=== PATIENT | male | born 1950 | race Caucasian/White ===

== ENCOUNTER 2019-10-21 12:03 | Inpatient (IN) ==
[2019-10-21] MEDS ORDERED: ASPIRIN PO ONE (12:14)
[2019-10-21] MEDS ORDERED: CARDIZEM 100 MG/NS 100 MG/100 ML IVPB IV SCH (12:15)
[2019-10-21] MEDS ORDERED: CARDIZEM IV ONE ×2 (12:15→13:37)
--- NOTE | 2019-10-21 12:32 | EKG Report ---
Test Performed on : 10/21/2019 12:14:55 PM Test Reason : AFIB Blood Pressure : / mmHG Vent. Rate : 140 BPM Atrial Rate : 280 BPM P-R Int : 000 ms QRS Dur : 084 ms QT Int : 308 ms P-R-T Axes : 269 069 -21 degrees QTc Int : 470 ms Atrial flutter. with 2:[address]. [address] abnormality, possible inferior subendocardial injury Abnormal ECG When compared with ECG of 12-OCT-2019 03:27, (Unconfirmed) Atrial flutter. has replaced Sinus rhythm. Vent. rate has increased BY [address] now depressed in Inferior leads T wave inversion now evident in Inferior leads Unconfirmed Result
[2019-10-21 12:54] LABS: INR 1.29; PROTIME 16.3 Seconds (11.0-16.0); PTT 31.7 Seconds (22.3-41.8)
--- NOTE | 2019-10-21 12:58 | Diag Imaging Result Doc PS360 ---
EXAM: CHEST-1 VIEW 10/21/2019 HISTORY: SOB TECHNIQUE: AP portable upright at 1244 COMMENT: There is ill-defined opacity in both lung bases which was not the case on 09/08/2017. The heart size and primary vascularity are within normal limits. IMPRESSION: Mild bronchopneumonia. Electronically signed by López Mixon 10/21/2019 12:56 PM
[2019-10-21 13:00] LABS: BASO# 0.08 X1000 (0.0-0.2); BASO% 0.5 % (0.0-0.8); EOS# 0.09 X1000 (0.0-0.7); EOS% 0.6 % (0.0-10.0); HEMATOCRIT 44.8 % (42.0-52.0); HEMOGLOBIN 14.4 g/dL (14.0-18.0); IMM GRAN# 0.99 X1000 (0.0-0.04); IMM GRAN% 6.4 % (0.0-0.5); LYMPH% 7.8 % (20.5-51.1); MCH 27.1 PG (27-31); MCHC 32.1 g/dL (33-37); MCV 84.2 FL (81-99); MONO# 0.61 X1000 (0.11-0.59); NEUT# 12.47 X1000 (1.4-6.5); NEUT% 80.7 % (42.2-75.2); PLT 96 X1000 (130-400); RBC 5.32 XMIL (4.7-6.1); WBC 15.44 X1000 (4.8-10.8)
[2019-10-21 13:09] LABS: ALB/GLOB RATIO 1.1; ALBUMIN 3.4 g/dL (3.5-5.0); CALCIUM 9.1 mg/dL (8.8-10.2); CREATININE 1.2 mg/dL (0.7-1.2); TOTAL BILIRUBIN 1.12 mg/dL (0.20-1.00); TOTAL PROTEIN 6.6 g/dL (6.3-8.3)
[2019-10-21 13:16] LABS: POTASSIUM 4.4 mmol/L (3.5-5.1)
[2019-10-21] MEDS ORDERED: LEVAQUIN 750 MG/D5W 750 MG/150 ML IVPB IV ONE (13:21)
[2019-10-21] MEDS ORDERED: ZOFRAN IV ONE (13:32)
[2019-10-21] MEDS ORDERED: ROCEPHIN 1 GM in NS 50 ML IV ONE (13:36)
[2019-10-21] MEDS ORDERED: ZITHROMAX 500 MG/NS 500 MG/250 ML IVPB IV ONE (13:37)
--- NOTE | 2019-10-21 14:31 | PROVIDER DOCUMENTATION ---
This chart was entered by Kristen Fang Scribe, acting as scribe for Librado Loo MD. HPI-Respiratory General - General Chief Complaint: Palpitations Stated Complaint: A FIB Time Seen by Provider: 10/21/19 12:39 Source: patient Allergies/Adverse Reactions: Patient Allergies Allergy/AdvReac Type Severity Reaction Status Date / Time No Known Allergies Allergy Verified 10/21/19 13:36 Home Medications: Home Medication List Medication Instructions Recorded Confirmed Last Taken Type ATORVAstatin [Lipitor] 40 mg PO DAILY 10/12/19 10/21/19 10/20/19 History Cholecalciferol (Vitamin D3) 5,000 unit PO DAILY 10/12/19 10/21/19 10/21/19 His tory [Vitamin D3] Clonazepam 0.5 mg PO DAILY 10/12/19 10/21/19 10/20/19 History Diltiazem [Cardizem] 240 mg PO DAILY 10/12/19 10/21/19 10/20/19 History Famotidine [Pepcid] 40 mg PO DAILY 10/12/19 10/21/19 10/20/19 History Levofloxacin [Levaquin] 500 mg PO DAILY 10/12/19 10/21/19 10/21/19 History Levothyroxine [Synthroid] 125 mcg PO DAILY 10/12/19 10/21/19 10/19/19 08:00 History Rivaroxaban [Xarelto] 20 mg PO DAILY 10/12/19 10/21/19 10/19/19 08:00 History Tamsulosin [Flomax] 0.4 mg PO BID 10/12/19 10/21/19 10/21/19 History Ubidecarenone [Coenzyme Q10] 100 mg PO DAILY 10/12/19 10/21/19 10/20/19 History - History of Present Illness-Resp Nature of Presenting Problem: 69yom presents to ED cc SOB this morning. Pt reports he has hx of Afib and recently had a med change, he was taken off Coreg and also hasn't had his Xarelto since Saturday night due to a liver biopsy scheduled on Saturday. Pt is followed by Dr. Quinones for Afib and Dr. Esparza due to being recently dx with liver and lung cancer. Quality of Pain: reports: tightness Severity in ED: reports: mild Onset/Duration: reports: this morning Timing: reports: still present Cough Quality/Degree: reports: no cough Current Respiratory Medication Therapy: Initiated see nurses note Modifying Factors: improves with: nothing Associated Symptoms: reports: shortness of breath, short of breath. denies: chest pain/soreness Similar Symptoms Previously?: Yes Recently seen or treated by another doctor?: Yes Review of Systems - Adult - REVIEW OF SYSTEMS - ADULT Constitutional: reports: see HPI. denies: chills, fever, fatique Eyes: reports: no symptoms reported Ears, Nose, Mouth & Throat: reports: no symptoms reported Cardiovascular: reports: see HPI, palpitations. denies: chest pain Respiratory: reports: see HPI, shortness of breath. denies: cough, wheezing Gastrointestinal: reports: no symptoms reported Genitourinary: reports: no symptoms reported Musculoskeletal: reports: no symptoms reported Integumentary: reports: no symptoms reported Neurological: reports: no symptoms reported Psychiatric: reports: no symptoms reported Endocrine: reports: no symptoms reported Hematologic/Lymphatic: reports: no symptoms reported Allergic/Immunologic: reports: no symptoms reported All Other Systems: Reviewed and Negative Past History - Adult - PAST MEDICAL HISTORY-ADULT Review of Records: reports: Old Records Reviewed, Nursing Assessment Review, Medications Reviewed, Social history reviewed & non-contributory. Major Childhood Illnesses: reports: denies history Cardiovascular: reports: denies history Respiratory: reports: denies history Gastrointestinal: reports: denies history Obstetrical/Gynecological: reports: denies history Genitourinary: reports: denies history Musculoskeletal: reports: denies history Neurological: reports: denies history Endocrine/Immune: reports: denies history Other Conditions: reports: denies history - IMMUNIZATION STATUS Childhood Immunizations: See Nurse Assessment Flu Vaccine: See Nurse Assessment - FAMILY HISTORY Family History: reviewed, not pertinent Physical Exam-General - PHYSICAL EXAM-ADULT Initial Vital Signs Reviewed: Yes - CONSTITUTIONAL General Appearance: appears well, alert, no apparent distress. negative: anxious, combative - EYES Eyes: PERRL/EOMI, pink conjunctivae. negative: photophobia - HEAD, EARS, NOSE, MOUTH & THROAT HENMT: normocephalic/atraumatic, moist mucous membranes. negative: angioedema - NECK Neck: supple, normal inspection - RESPIRATORY Respiratory: chest non-tender, lungs clear, normal breath sounds. negative: rhonchi, wheezing - CARDIOVASCULAR Cardiovascular: normal peripheral pulses, no edema, no murmur, tachycardia. negative: bradycardia - GASTROINTESTINAL (ABDOMEN) Abdominal Exam: normal bowel sounds, non tender, soft. negative: guarding, rebound - MUSCULOSKELETAL Extremity: normal inspection, no pedal edema, no calf tenderness, normal capillary refill. negative: deformity - SKIN Integumentary: normal color. negative: diaphoresis, jaundice, rash - NEUROLOGIC Neurologic: wax coating machine tender II-XII nml as tested, grossly normal, no motor/sensory deficits - PSYCHIATRIC Psych/Mental Status: normal mood/affect, oriented x 3. negative: anxious, disheveled Progress - PLAN OF CARE/RESULTS Progress/Plan/Lab Results: Vital Signs - 8 hr 10/21/19 12:23 10/21/19 13:12 Temperature 97.9 F Pulse Rate 141 H 141 H Respiratory Rate 20 18 Blood Pressure 96/56 95/66 O2 Sat by Pulse Oximetry 91 L 92 L Laboratory Results - last 24 hr 10/21/19 10/21/19 10/21/19 12:21 12:21 12:21 WBC RBC Hgb Hct MCV MCH MCHC RDW Std Deviation Plt Count MPV Immature Gran % (Auto) Neut % (Auto) Lymph % (Auto) [place] % (Auto) Eos % (Auto) Baso % (Auto) Immature Gran # (Auto) Neut # (Auto) Lymph # (Auto) [place] # (Auto) Eos # (Auto) Baso # (Auto) PT INR PTT (Actin FS) Sodium 133 L Potassium 4.4 Chloride 96 L Carbon Dioxide 21 L Anion Gap 16 BUN 19 Creatinine 1.2 Estimated GFR/1.73 m2 60 BUN/Creatinine Ratio 16 Glucose 205 H Calculated Osmolality 275 Calcium 9.1 Total Bilirubin 1.12 H AST 120 H ALT 67 H Alkaline Phosphatase 461 H Creatine Kinase 83 Troponin T High Sens 25 H Gwd-J-Kgzyvtmqons Pept 721 H Total Protein 6.6 Albumin 3.4 L Globulin 3.2 Albumin/Globulin Ratio 1.1 10/21/19 10/21/19 12:21 12:21 WBC 15.44 H RBC 5.32 Hgb 14.4 Hct 44.8 MCV 84.2 MCH 27.1 MCHC 32.1 L RDW Std Deviation 14.0 Plt Count 96 L MPV 11.0 H Immature Gran % (Auto) 6.4 H Neut % (Auto) 80.7 H Lymph % (Auto) 7.8 L [place] % (Auto) 4.0 Eos % (Auto) 0.6 Baso % (Auto) 0.5 Immature Gran # (Auto) 0.99 H Neut # (Auto) 12.47 H Lymph # (Auto) 1.20 [place] # (Auto) 0.61 H Eos # (Auto) 0.09 Baso # (Auto) 0.08 PT 16.3 H INR 1.29 PTT (Actin FS) 31.7 Sodium Potassium Chloride Carbon Dioxide Anion Gap BUN Creatinine Estimated GFR/1.73 m2 BUN/Creatinine Ratio Glucose Calculated Osmolality Calcium Total Bilirubin AST ALT Alkaline Phosphatase Creatine Kinase Troponin T High Sens [id number] Pept Total Protein Albumin Globulin Albumin/Globulin Ratio Orders Category Date Time Status Cardiac Monitoring DIRECTED Care 10/21/19 12:15 Active NEWS Score >or=5:Order NEWS Bundle S.O. NOW Care 10/21/19 12:26 Active Oxygen Therapy- ED Nursing DIRECTED Care 10/21/19 12:15 Active Saline Loc NOW Care 10/21/19 12:15 Active CHEST-1 VIEW [RAD] Stat Exams 10/21/19 12:15 Completed BC [BLOOD CULTURE] [BLDCUL] Stat Lab 10/21/19 13:21 Uncollected CBC WITH ELECTRONIC DIFF [HEME] Stat Lab 10/21/19 12:21 Completed CK PROFILE [SP CHEM] Stat Lab 10/21/19 12:21 Completed COMPREHENSIVE METABOLIC PANEL [CHEM] Stat Lab 10/21/19 12:21 Completed LACTATE, PLASMA [CHEM] Stat Lab 10/21/19 12:21 Received PRO B-NATRIURETIC PEPTIDE Stat Lab 10/21/19 12:21 Completed PROTIME WITH INR [COAG] Stat Lab 10/21/19 12:21 Completed PTT [COAG] Stat Lab 10/21/19 12:21 Completed TROPONIN T HIGH SENSITIVITY Stat Lab 10/21/19 12:21 Completed Aspirin Med 10/21/19 12:14 Discontinued 325 mg PO NOW ONE Azithromycin 500 mg/Ns [Zithromax 500 mg/Ns] Med 10/21/19 13:37 Active 500 mg in 250 ml IV NOW CefTRIAXONE [Rocephin] 1 gm Med 10/21/19 13:36 Discontinued 0.9% Sodium Chloride Inj [Ns] 50 ml IV NOW Diltiazem 100 mg/Ns [Cardizem 100 mg/Ns] Med 10/21/19 12:15 Active 100 mg in 100 ml IV As Directed mls/hr Diltiazem [Cardizem] Med 10/21/19 12:15 Discontinued 20 mg IV NOW ONE Diltiazem [Cardizem] Med 10/21/19 13:37 Discontinued 20 mg IV NOW ONE Levofloxacin 750 mg/D5w [Levaquin 750 mg/D5w] Med 10/21/19 13:21 Discontinued 750 mg in 150 ml IV NOW Ondansetron [Zofran] Med 10/21/19 13:32 Discontinued 4 mg IV NOW ONE CP/SOB/Palp >45 yrs of Age Stat Oth 10/21/19 12:14 Ordered EKG [EKG] Stat Ther 10/21/19 12:15 Draft Result Diagrams: 10/21/19 12:21 10/21/19 12:21 - EKG 1 Time of EKG reading by physician:: 12:14 EKG Read and Signed by:: Librado Loo EKG Interpretation (*Must complete 3 of following elements*): Abnormal (Marked St abnormality; possible inferior subendocardial injury) Rate: 140 Rhythm: Atrial Flutter w/2:1 AV conduction [place]: normal QRS: normal - XRAY 1 XRAY: Bilateral XRAY Study: Chest Impression: See EMR Report (IMPRESSION: Mild bronchopneumonia. Electronically signed by López Mixon 10/21/2019 12:56 PM) - CONSULTS/PCP/HOSPITALIST Notification #1 *Consult/PCP/Hospitalist*: Aurea/LEELEE Time Discussed: 14:07 Consult Disposition: Admit Departure - Departure Date of Disposition Decision: 10/21/19 Time of Disposition Decision: 14:07 DIAGNOSIS: Pneumonia Qualifiers: Pneumonia type: due to unspecified organism Laterality: unspecified laterality Lung location: unspecified part of lung Qualified Code(s): J18.9 - Pneumonia, unspecified organism Atrial flutter Qualifiers: Atrial flutter type: unspecified Qualified Code(s): I48.92 - Unspecified atrial flutter Disposition: ADMITTED INPATIENT 09 Certified Medical Emergency: Emergent Condition: Stable Referrals and Follow-Ups: Bay Hopper MD [Primary Care Provider] - - Critical Care Note This patient required my direct & personal management of CC.: Yes Total Time (mins): 120 Critical Care Statement: This patient required my direct personal management to treat or rule out processes, the absence of which, could potentiallly result in sudden, clinically significant life or limb threatening deterioration. Attestation - Physician/ [place] Attestation Patient care was provided by Advanced Practice Provider:: No The physician spent face to face time with patient:: Yes Advanced Practice Provider documentation review:: Supervising physician onsite and consulted in the evaluation and care of this patient. The physician did have a face to face encounter with the patient. This chart was documented by the indicated scribe, (Kristen Fang Scribe) and accurately reflects the services I performed and decisions made by me, Librado Loo MD, as attested by the provider's signature.
[2019-10-21] MEDS ORDERED: NS NEB INH SCH (16:30)
[2019-10-21] MEDS ORDERED: XARELTO PO SCH (17:00)
[2019-10-21] MEDS ORDERED: CORDARONE 360 MG/D5W 360 MG/200 ML IV.SOLN IV ONE (17:33)
[2019-10-21] MEDS ORDERED: HEPARIN 25,000 UNIT in NS 250 ML IV SCH (17:45)
[2019-10-21] MEDS ORDERED: HEPARIN IV ONE (17:46)
[2019-10-21 17:55] LABS: ALLEN TEST NO; BE -4.2 mmoll (-3.0-3.0); BLOOD TYPE ARTERIAL; HCO3-(ACT) 21.5 mmoll (20.0-26.0); METHB 1.5 % (0.0-1.5); O2(CT) 18.5 mL/dL (15.0-23.0); O2HB 91.4 % (95.0-99.0); PCO2(98.6) 26 mmHg (35-45); PO2(98.6) 63 mmHg (60-100); SAMPLE BLOOD; SAO2 94.4 % (95.0-100.0); THB 14.4 g/dL (11.5-17.4); pH(98.6) 7.45 (7.35-7.45)
[2019-10-21 17:56] LABS: MODALITY VENTIMASK
[2019-10-21] MEDS: XOPENEX NEB INH SCH ×2 (17:56→22:02)
--- NOTE | 2019-10-21 19:13 | HISTORY AND PHYSICAL ---
PRIMARY CARE PROVIDER: Dr. Bay Hopper. ONCOLOGIST: Dr. Esparza. BICYCLE TECHNICIAN: Dr. Quinones. CHIEF COMPLAINT: Weakness, heart palpitations, shortness of breath. HISTORY OF PRESENT ILLNESS: Mr. Prado is a 69-year-old male with a past medical history of recently diagnosed with a lung mass and lesion on his liver. He has saw Dr. Esparza in the office twice now. He has not started chemotherapy. He is supposed to go for a lung biopsy I believe Saturday. He has been off his Xarelto since then. He had a recent change in his Coreg from 12.5 down to 6 b.i.d., that was stopped by Dr. Quinones, and was initiated on Cardizem 240 daily for lower blood pressures as well as an increase in his heart rate. This was done last Saturday. Again, no Xarelto since Saturday in anticipation for a liver and lung biopsy. Other past medical history, BPH, hypertension, vitamin D deficiency, hypothyroidism, anxiety. He was diagnosed with atrial fibrillation in April of 2019. He reports recent constipation, no appetite, change in the way that foods smells. He has been positive for night sweats for the last couple of months. Weight loss from August, from 235 down to 220. Positive for shortness of breath, palpitations with no chest pain, dizziness. Workup in the ED showed he was in atrial flutter with a 2:1 AV conduction at 140 beats per minute. He was initiated on a Cardizem drip. There was some question if he has a bronchopneumonia. Unsure if it is pneumonia and/or the mass on the right side. However, it does state it is on bilateral sides. He reports no cough or productive sputum. No fever. No chills. He will be admitted to PCU and continue on Cardizem drip with a Cardiology consult. PAST MEDICAL HISTORY: Recently diagnosis this past Saturday with I believe a lung and liver mass, atrial fibrillation in April 2019, recent changes in his antiarrhythmics, hyperlipidemia, anxiety, GERD, BPH, hypertension. PAST SURGICAL HISTORY: Cholecystectomy. SOCIAL HISTORY: He recently second time around in 2018. He was a . No tobacco, alcohol, or illicit drug use, or substance abuse. FAMILY HISTORY: Positive for coronary artery disease in brother who at the age of 42 from an [place]. Father at the age of 53. ALLERGIES: No known drug allergies. MEDICATIONS: Home medications are being compiled. REVIEW OF SYSTEMS: Fourteen point review of systems completely negative except for those mentioned in HPI. PHYSICAL EXAMINATION: VITAL SIGNS: Temperature is 97.6 degrees, heart rate 136, respirations 24, blood pressure 113/77, O2 is 95% on Venturi mask. GENERAL: Mr. Prado is a pleasant, 69-year-old male who is short of breath but in no acute distress. HEENT: Atraumatic, normocephalic. PERRL. NECK: Supple. Trachea midline. CV: S1, S2 are appreciated. No murmurs, gallops, rubs noted. RESPIRATORY: Lung sounds clear bilaterally. GI: Soft, nontender, nondistended. Positive bowel sounds 4 quadrants. EXTREMITIES: Lower extremities negative for edema. Bilateral pedal pulses are palpable. DIAGNOSTIC DATA: EKG shows atrial flutter at 140 beats per minute with a 2:1 AV conduction. Chest x-ray shows bronchopneumonia. LABORATORY DATA: White count 15, hemoglobin and hematocrit 14 and 44, platelet count is 96,000. Sodium 133, potassium 4.4, BUN 19, creatinine 1.2, blood glucose is 205. T bilirubin 1.2, AST 120, ALT 67, alkaline phosphatase 461. CK of 83. Troponin of 25. ProBNP is 721. Lactate 3.5. ASSESSMENT AND PLAN: 1. Atrial flutter was 2:1 AV conduction. He is not converting on Cardizem. He has been switched to IV amiodarone with a bolus, as well as a heparin drip. Consult Cardiology. Check an echocardiogram in the a.m. He has had a recent medication change, taken off his Coreg and placed on a Cardizem. He has been off his Xarelto since Saturday secondary to needing a, I believe, a liver and lung biopsy. 2. Bronchopneumonia. We will continue with broad-spectrum antibiotics. He did have a positive lactate. I do not see where he has gotten any fluid boluses. We have started normal saline. 3. New diagnosis of right lung and liver masses. Will be followed by Dr. Esparza. Was awaiting a biopsy on his liver. He has been off his Xarelto. Again, he has been placed on heparin drip. 4. Transaminitis, possibly secondary to liver mass. We will do a right upper quadrant ultrasound. Send off a hepatitis profile. 5. Hypertension. The patient was borderline hypotensive on arrival. 6. Hypothyroidism. Continue Synthroid. 7. Benign prostatic hypertrophy. 8. Anxiety. 9. Mild hyponatremia. Continue with IV hydration. 10. Hyperglycemia. Denies any history of diabetes. We will check a hemoglobin A1c. 11. Hypoxemic. Patient is being placed on a Venturi mask. We will consult Dr. Peacock with Pulmonology. Check an ABG stat. 12. Further recommendation to follow physician evaluation, laboratory and diagnostic data. Dictated by LUCIO Gayle for Tiffanie Kumar MD cc: MD Francisco Avilez MD Ashish K. Basu, MD Wayne E. Thomas, MD Katherine Takundwa, MD I performed a face to face encounter on the patient. I reviewed all labs and imaging on the patient. I agree with the H&P as dictated. LUANAD
[2019-10-21] MEDS: NS 1,000 ML IV SCH (19:46)
[2019-10-21] MEDS: BETAPACE PO SCH ×2 (19:46→22:11)
[2019-10-21] MEDS: ZYVOX 600 MG/D5W 600 MG/300 ML IVPB IV SCH ×2 (19:46→22:12)
[2019-10-21] MEDS: LOVENOX SUBQ SCH (19:46)
[2019-10-21] MEDS ORDERED: BETAPACE PO SCH (20:00)
--- NOTE | 2019-10-21 20:50 | CARDIOLOGY CONSULTATION ---
DATE: 10/21/2019 CHIEF COMPLAINT: Irregular heartbeat, dizziness. HISTORY: A 69-year-old male who presents to the ER today at about 12:15 p.m. with a sudden onset of dizziness this morning when he got up. He checked his blood pressure, noted that he could not measure it. His machine was giving him an error reading. He decided to come to the ER and they found him in atrial flutter with rapid response. They did a chest x-ray that has been reported by the radiologist as showing possible mild bronchopneumonia, ill-defined opacity in both lung bases. The patient denies having any cough, any wheezing, any fever. PAST MEDICAL HISTORY: Positive for "mitral valve prolapse" for the past 25 years or so. He was seeing doctors in [place], Dr. Reyes and subsequently Dr. Keturah Prado. They were treating him with Klonopin and in 2016 he developed an episode of chest discomfort. They did a stress test and he took the results of the stress test to [place] and they did a CT of the heart that showed moderate coronary atherosclerosis with a 50% stenosis of the right coronary artery. Then in April of last year. The patient developed episode of paroxysmal atrial fibrillation and at that time, he went back to [place] and he was referred to Dr. [place], who put him on Xarelto and has been treating him since. The patient had an episode of atrial fibrillation on 10/12/2019 for which he went to the ER. They recommended a follow up. Apparently they had arranged for him to see Dr. Quinones at the office and he saw him recently. There were plans to do an echocardiogram on November 01. However, he just presented today to the ER with the aforementioned symptoms of dizziness and the finding of a rapid heartbeat. In addition, the patient was found to have possible metastatic lesion in the liver and also an abnormal CT of the chest. I believe this was done by Dr. Esparza and the patient had been scheduled for a CT-guided biopsy on October 19. Unfortunately, he had not discontinued the Xarelto and that biopsy has been postponed until this coming Saturday, 10/22. The patient has a history of questionable stroke in the past. He has had previous cholecystectomy. SOCIAL HISTORY: He is to his 2nd . He has 2 grown up children. 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 HOME MEDICATIONS: At the time of this admission included the following: He is taking atorvastatin 40 mg daily, vitamin D3 5000 units daily, clonazepam 0.5 mg daily, diltiazem 240 mg daily, famotidine 40 mg daily, metoclopramide 5 mg every 6 hours, Synthroid 125 mg daily, Levaquin 500 daily, tamsulosin 0.4 mg twice a day, Xarelto 20 mg daily, coenzyme Q10 at 100 mg daily. ALLERGIES: He is not allergic to any medication. REVIEW OF SYSTEMS: Other than the items that I have mentioned, is noncontributory. PHYSICAL EXAMINATION: Vital signs: Blood pressure is 113/77, temperature 97.6 degrees, pulse 136, respirations 20. General: The patient is awake, alert, oriented, in no distress. HEENT: Unremarkable. Chest: Diminished breath sounds diffusely. Heart: Sounds are slightly irregular. No gallop or murmur. Abdomen: Nontender. No hepatomegaly. Extremities: Show good pulses. No peripheral edema. Neuro: Nonfocal. Moves 4 extremities. BLOOD WORK: Sodium is 133, potassium is 4.4, BUN 19, creatinine 1.2, bilirubin is 1.1, AST 120, ALT 67, alkaline phosphatase 461 units. Of note, all of his liver function tests were normal back in May of 2019 when he presented to the ER. His proBNP is 721 picogram per mL. White cell count is 15,440. IMPRESSION: 1. Patient presenting with paroxysmal atrial flutter. He does have a history of paroxysmal atrial fibrillation. 2. Reported history of lung cancer with metastasis to the liver. 3. "Mitral valve prolapse" history of. 4. Remote history of stroke or transient ischemic attack in 08/2016. 5. Abnormal liver function tests. Question of a space-occupying lesion in the liver. 6. Moderate coronary atherosclerosis. RECOMMENDATION: At this time, I would suggest to put the patient on low-dose sotalol 40 mg every 12 hours. Continue IV Cardizem and we will proceed with MIGDALIA-guided cardioversion on Saturday, 10/22 if he does not convert spontaneously within the next 24 to 48 hours. I acknowledged the fact that sotalol could potentially prolong the QT interval and lead to an arrhythmia. However, given his abnormal liver function test, I am really very worried about using amiodarone. Certainly, amiodarone could not be used long-term at any rate. I am also concerned about putting him on anticoagulants since his PT is already prolonged at 16.3 on the baseline blood tests. Further advice will be forthcoming. I understand that they have done blood cultures. We need to keep an eye on that. I do not believe that his presentation is consistent with pneumonia. It is more likely the result of the aforementioned neoplastic process that they are trying to define with the upcoming biopsy. We will continue to follow the patient. Thank you for the opportunity to participate in his evaluation. cc: Aayush Cheney MD MTD
[2019-10-21] MEDS: NORCO-5 PO PRN (22:43)
[2019-10-21] MEDS ORDERED: CORDARONE 360 MG/D5W 360 MG/200 ML IV.SOLN IV SCH (23:33)
--- NOTE | 2019-10-22 00:06 | PULMONOLOGY CONSULTATION ---
DATE: 10/21/2019 REQUESTING CLINICIAN: Dr. Kumar. REASON FOR CONSULTATION: Respiratory failure with pneumonia. HISTORY OF PRESENT ILLNESS: Mr. Prado is a 69-year-old male with a greater than 89-bysq-ykgo history for tobacco (nonsmoker since 1995), who reports he developed atrial fibrillation last fall. He was initially evaluated in [place], but recently transferred his cardiac care to Dr. Quinones in [place]. The patient was having difficulty with BPH and underwent 2 courses of antibiotics without improvement. He underwent a CT scan of his pelvis, which revealed an abnormality in his liver. He underwent a PET scan which reveals an abnormality in the lung and the liver. He has been evaluated by Dr. Esparza and has been scheduled for a liver biopsy. The patient discontinued his anticoagulation in anticipation of a biopsy, but developed tachycardia with associated shortness of breath. He denies fevers or chills, but has had difficulty with night sweats. He also has new-onset back pain and testicular pain. He has lost approximately 15 pounds since August. PAST MEDICAL HISTORY: 1. New-onset atrial fibrillation as per above. 2. Hypothyroidism. 3. Status post cholecystectomy. 4. History of Bright palsy. SOCIAL HISTORY: Prior tobacco use as per above. He previously worked in construction and in compressor manufacturing. No recent alcohol use. FAMILY HISTORY: Mother age 92 in good health. Father from heart disease. REVIEW OF SYSTEMS: As noted in the HPI, but otherwise negative. PHYSICAL EXAMINATION: Physical exam reveals a well-developed, well-nourished male resting comfortably and in no distress. He is on supplemental oxygen. He has tachycardia with a heart rate in the upper 130s. Respiratory rate 20, oxygen saturation 94%.HEENT: Pupils are equal and reactive. Oropharynx appears clear. Neck is supple. Chest reveals good air entry bilaterally without wheezing or rhonchi. Cardiac exam: S1, S2. Abdomen is soft. Definite hepatic mass cannot be appreciated. Extremities without edema. LABORATORY DATA: Arterial blood gas reveals a pH 7.45, pCO2 of 26, pO2 of 63. IMPRESSION: A 69-year-old with: 1. Saiiddfrh-sp-pxaqkyb atrial fibrillation. 2. Acute hypoxemic respiratory failure. 3. Probable malignancy as outlined above. 4. Hypercoagulable state, likely due to malignancy and discontinuation of anticoagulation. PLAN: 1. Agree with Lovenox dosing as ordered by Dr. Cheney. 2. Schedule venous Doppler of the lower extremities. 3. Consider CT pulmonary angiography, although he has already been initiated on anticoagulation and has recently undergone PET scanning. 4. Additional recommendations pending hospital course. cc: Walter Peacock MD
[2019-10-22] MEDS: ZOFRAN IV PRN ×2 (03:19→20:13)
[2019-10-22 03:38] LABS: ALLEN TEST YES; BE -4.9 mmoll (-3.0-3.0); BLOOD TYPE ARTERIAL; METHB 1.6 % (0.0-1.5); MODALITY PRB; O2(CT) 18.3 mL/dL (15.0-23.0); O2HB 94.6 % (95.0-99.0); PCO2(98.6) 28 mmHg (35-45); PO2(98.6) 86 mmHg (60-100); SAMPLE BLOOD; SAO2 97.6 % (95.0-100.0); THB 13.7 g/dL (11.5-17.4); pH(98.6) 7.42 (7.35-7.45)
[2019-10-22] MEDS: PRILOSEC PO SCH (06:09)
[2019-10-22 06:49] LABS: BASO# 0.06 X1000 (0.0-0.2); BASO% 0.4 % (0.0-0.8); EOS# 0.08 X1000 (0.0-0.7); EOS% 0.5 % (0.0-10.0); HEMATOCRIT 39.9 % (42.0-52.0); HEMOGLOBIN A1C 6.9 % (4.8-6.0); IMM GRAN# 0.94 X1000 (0.0-0.04); IMM GRAN% 5.7 % (0.0-0.5); LYMPH# 1.56 X1000 (1.2-3.4); LYMPH% 9.4 % (20.5-51.1); MCH 27.7 PG (27-31); MCHC 32.6 g/dL (33-37); MCV 84.9 FL (81-99); MONO# 0.76 X1000 (0.11-0.59); MONO% 4.6 % (1.7-9.3); MPV 11.4 FL (7.4-10.4); NEUT# 13.17 X1000 (1.4-6.5); NEUT% 79.4 % (42.2-75.2); PLT 83 X1000 (130-400); RDW 14.1 % (11.5-14.5); WBC 16.57 X1000 (4.8-10.8)
[2019-10-22 07:06] LABS: AGAP 16; ALB/GLOB RATIO 0.9; ALBUMIN 2.9 g/dL (3.5-5.0); ALKALINE PHOSPHATASE 525 U/L (32-122); BUN 24 mg/dL (8-22); CALCIUM 8.8 mg/dL (8.8-10.2); CHLORIDE 98 mmol/L (98-107); COSMO 271; CREATININE 0.9 mg/dL (0.7-1.2); ESTIMATED GFR > 60; GLUCOSE 145 mg/dL (70-104); GOT 141 U/L (10-34); GPT 64 U/L (10-44); POTASSIUM 4.5 mmol/L (3.5-5.1); SODIUM 132 mmol/L (136-145); TCO2 18 mmol/L (25-35); TOTAL BILIRUBIN 0.88 mg/dL (0.20-1.00); TOTAL PROTEIN 6.2 g/dL (6.3-8.3)
--- NOTE | 2019-10-22 07:13 | Diag Imaging Result Doc PS360 ---
EXAM: CHEST-1 VIEW 10/22/2019 HISTORY: Pneumonia TECHNIQUE: AP portable at 0600 COMMENT: The inspiration is slightly less optimal than on 10/21/2019. There is still some ill-defined opacity in the medial lower lobes. IMPRESSION: Atelectasis versus pneumonia in both lower lobes. Electronically signed by López Mixon 10/22/2019 7:11 AM
[2019-10-22] MEDS: BETAPACE PO SCH ×3 (07:53→20:05)
[2019-10-22] MEDS: NORCO-5 PO PRN ×3 (07:53→22:43)
[2019-10-22] MEDS: LOVENOX SUBQ SCH ×2 (07:54→20:06)
[2019-10-22] MEDS: MAXIPIME 1 GM in NS 50 ML IV SCH ×3 (07:55→20:05)
[2019-10-22] MEDS: ZYVOX 600 MG/D5W 600 MG/300 ML IVPB IV SCH ×3 (07:55→20:13)
[2019-10-22 08:05] LABS: EOS 1 % (1-10); LYMPHS 11 % (21-51); MONO 5 % (1-9); SEGS 83 % (42-75)
--- NOTE | 2019-10-22 08:22 | EKG Report ---
Test Performed on : 10/22/2019 07:23:38 AM Test Reason : afib Blood Pressure : / mmHG Vent. Rate : 133 BPM Atrial Rate : 266 BPM P-R Int : 000 ms QRS Dur : 090 ms QT Int : 376 ms P-R-T Axes : 267 064 -65 degrees QTc Int : 559 ms Critical Test Result: Long QTc Atrial flutter. with 2:[address]. [address] abnormality, possible inferior subendocardial injury Abnormal ECG When compared with ECG of 21-OCT-2019 12:14, (Unconfirmed) Nonspecific T wave abnormality now evident in Anterolateral leads Confirmed by Camden Taylor MD ([id number]) on 10/22/2019 8:19:16 PM
[2019-10-22] MEDS: CARDIZEM 100 MG/NS 100 MG/100 ML IVPB IV SCH ×2 (08:31→18:00)
[2019-10-22] MEDS ORDERED: CARDIZEM 100 MG/NS 100 MG/100 ML IVPB ONE (08:32)
[2019-10-22] MEDS: HUMULIN R SUBQ SCH ×4 (08:40→20:08)
--- NOTE | 2019-10-22 09:24 | CARDIOLOGY PROGRESS NOTE ---
DATE: 10/22/2019 CHIEF COMPLAINT: Shortness of breath, palpitations. SUBJECTIVE: Throughout the night, the patient has felt more short of breath than usual. His heart rate remains elevated. Unfortunately, the nurses stopped Cardizem. He just received only sotalol. His EKG obviously shows still atrial flutter with rapid response, rate is 133 beats per minute. The patient denies having chest pain. He does appear to be ill. OBJECTIVE: Vital signs: Blood pressure 104/88, temperature 97.7 degrees, pulse 149, respirations 36. General: He is awake, in no distress. HEENT: Unremarkable. Chest: Diminished breath sounds bilaterally. Heart: Sounds are tachycardic, irregular, question of gallop. Abdomen: Nontender. Extremities: Show no edema. Neurologic exam: Follows commands, moves all 4 extremities. BLOOD WORK: Sodium is 132, potassium 4.5, BUN 24, creatinine 0.9. His AST is going up to 141, ALT 64, alkaline phosphatase 525. ProBNP level is going up to 721. IMPRESSION: 1. Patient who presented with paroxysmal atrial flutter symptomatic. 2. Congestive heart failure diastolic. In addition, the patient seems to have some degree of respiratory failure. Pulmonary has seen the patient and they have given recommendations. Chest x-ray today has been reported as possible atelectasis versus pneumonia in both lower lobes. The possibility of pulmonary embolism has to be entertained. 3. Malignancy, uncertain as to whether or not this is a primary lung cancer with liver metastasis or the other way around. Because his liver function is so abnormal, I wonder if the primary may be in the liver. We do not have unfortunately any imaging studies in this hospital because all the workup has been done in an outside facility. I believe I am going to check a D-dimer, if elevated we will get a CT of the thorax with contrast. The report of the chest x-ray is really worrisome for bilateral pulmonary embolism and his behavior clinically is like pulmonary embolism. Further advice will be forthcoming. cc: Aayush Cheney MD
[2019-10-22] MEDS: XOPENEX NEB INH SCH ×3 (10:30→21:34)
[2019-10-22 10:45] LABS: HEPATITIS PROFILE ACUTE SEE COMMENTS
--- NOTE | 2019-10-22 11:00 | Diag Imaging Result Doc PS360 ---
EXAM: CT ANGIOGRM PULMONARY ARTERIES INDICATION: SOB/HI D-D TECHNIQUE: This exam was performed using automated exposure control, adjustment of mA or kV according to patient size, and/or use of iterative reconstruction technique. Thin section axial images and 3-D MIPS were obtained. COMPARISON: CT PET scan dated 10/14/2019 FINDINGS: There is no evidence of pulmonary embolism. There is no evidence of aortic dissection or aneurysm. There is no cardiomegaly. The hypermetabolic dominant mass seen at the medial right lung base on the recent prior PET scan is stable. Multiple other smaller hypermetabolic nodules throughout both lungs with a basilar predominance are also unchanged. There is stable subcarinal and right hilar lymphadenopathy that was hypermetabolic on the prior PET scan. There is mild dependent atelectasis bilaterally. There is no pleural fluid collection and no pneumothorax. In the left axillary region, there is a prominent subcutaneous nodule that probably represents a lymph node measuring up to 1.5 cm axially. It is stable and was hypermetabolic on the prior PET/CT. No new consolidations are appreciated. IMPRESSION: 1.No evidence of pulmonary embolism. 2.Stable medial right lung base mass, mediastinal lymphadenopathy, and multiple other suspicious lung nodules bilaterally as compared to the recent PET scan. Electronically signed by Shaheen Araiza 10/22/2019 10:58 AM
--- NOTE | 2019-10-22 11:16 | Diag Imaging Result Doc PS360 ---
EXAM: CT ABDOMEN/PELVIS W/WO CONTRAS INDICATION: abdominal pain/distention/urinary retention TECHNIQUE: This exam was performed using automated exposure control, adjustment of mA or kV according to patient size, and/or use of iterative reconstruction technique. COMPARISON: CT PET scan dated 10/14/2019 FINDINGS: There has been a prior cholecystectomy. There are at least three ill-defined low dense masses in the liver. These were hypermetabolic on the recent PET scan and are suspicious for metastatic lesions. They are stable as compared to the recent PET scan. There are a few other stable tiny low dense foci that were not hypermetabolic on the PET scan. These are more likely tiny cysts. The spleen, pancreas, adrenal glands, kidneys, and urinary bladder are essentially unremarkable and stable. There is prominent enlargement of the prostate, especially the median lobe, that was also noted on the recent PET scan. There is advanced uncomplicated diverticulosis coli. There is moderate gaseous distention of the cecum and transverse colon. There is no obstructive bowel pattern. The appendix is normal. The remainder of the GI tract is unremarkable. No focal inflammatory changes, free abdominal gas, or free fluid is appreciated. IMPRESSION: 1.Nonspecific moderate gaseous distention of the cecum and transverse colon but nothing that would suggest obstruction. 2.Stable prominent enlargement of the prostate. 3.Otherwise, the abdomen and pelvis are stable as compared to the recent PET/CT. Electronically signed by Shaheen Araiza 10/22/2019 11:14 AM
[2019-10-22] MEDS: COLACE PO SCH ×2 (11:39→20:06)
[2019-10-22] MEDS: MIRALAX PO SCH ×2 (11:40→20:05)
[2019-10-22] MEDS: FLOMAX PO SCH ×2 (11:40→20:17)
[2019-10-22] MEDS: NS 1,000 ML IV SCH ×2 (12:18→23:27)
--- NOTE | 2019-10-22 13:55 | HEMO/ONC CONSULTATION ---
DATE: 10/22/2019 REASONS FOR CONSULTATION: This is a known patient of ours for the treatment of metastatic cancer. HISTORY OF PRESENT ILLNESS: Mr. Prado is a 69-year-old male who has recently been diagnosed with a lung mass and diffuse liver metastasis. The patient was scheduled to have a liver biopsy this Saturday and has been off his Xarelto in preparation for a few days. The patient has a history of atrial fibrillation and came to the ED yesterday with the complaint of shortness of breath. The patient had recent medication changes by Dr. Quinones this past week in regards to his atrial fibrillation. Workup in the ED showed that he was in atrial flutter with 2 to 1 AV conduction at 140 beats per minute. He was initiated on a Cardizem drip and admitted to PCU for further evaluation. The patient recently came to us in the clinic as a referral from his family doctor. He has not been feeling well over the last 3 months and has lost weight. He has also been following with Dr. Reynoso regarding a PSA of 6.4 and prostate enlargement. PET-CT was done, which showed a right lower lobe lung mass with diffuse metastasis, nodules, pulmonary nodules bilaterally, hepatic metastases and diffuse abnormal bone activity. We referred the patient for a port placement as well as a liver biopsy. His liver biopsy was scheduled for this Saturday. At this time, we will postpone that in light of his current cardiac condition. PAST MEDICAL HISTORY: Atrial fibrillation, hyperlipidemia, anxiety, GERD, BPH, hypertension, hypothyroid. PAST SURGICAL HISTORY: Cholecystectomy. SOCIAL HISTORY: He denies tobacco, alcohol, or illicit drug use. ALLERGIES: No known drug allergies. HOME MEDICATION: Atorvastatin, vitamin D3, clonazepam, Cardizem, famotidine, Miranda 5, Synthroid, Reglan, Xarelto, Flomax, Co-Q10. REVIEW OF SYSTEMS: The patient's only complaint is short of breath. He denies any pain or chest pain. He does have some anxiety. All other review of systems negative. PHYSICAL EXAMINATION: Vital Signs: Temperature 98.3 degrees, pulse rate 128, respiratory rate 23, blood pressure 107/77, O2 saturation 91% on 15 L via non-rebreather. General: The patient appears slightly dyspneic but in no acute distress. HEENT: Sclerae anicteric. PERRLA. Oral mucosa is dry due to oxygen. Cardiovascular: Tachycardic rate and rhythm. No murmurs appreciated. Respiratory: Lung sounds were clear. Abdomen: Soft, nontender, nondistended. Positive bowel sounds. Extremities: No lower extremity edema noted. Lymphatic: No enlarged lymph nodes palpated. Neurological: Alert and oriented x3. No focal motor deficits LABORATORY DATA: WBC 16.57, hemoglobin 13.0, hematocrit 39.9, platelet count 83,000. ANC 13.17. Sodium 132. AST 141, ALT 64, alkaline phosphatase 525. Immunoglobulins within normal limits. Hepatitis panel negative. RADIOLOGY: Chest x-ray shows mild bronchopneumonia. Second chest x-ray shows atelectasis versus pneumonia in both lower lobes. Pulmonary arteriogram shows no evidence of pulmonary embolism, stable medial right lung base mass, mediastinal lymphadenopathy with multiple other suspicious lung nodules bilaterally. Abdomen and pelvis CT: Stable prominent enlargement of prostate. ASSESSMENT AND PLAN: 1. Atrial flutter with 2 to 1 AV conduction. We are aware. We will continue to follow. Continue management per Cardiology. 2. Bronchopneumonia. Continue the patient on antibiotics per medical management. We will continue to follow. 3. Right lower lobe lung mass with diffuse metastasis. We will need a liver biopsy when the patient is recovered from his acute illness. 4. Transaminitis, most likely secondary to his liver metastasis. Hepatitis profile negative. 5. Benign prostatic hypertrophy and elevated PSA. Consult Urology to follow. Dictated by LUCIO Hemphill for Francisco Esparza MD cc: Francisco Esparza MD [facility]
[2019-10-22] MEDS ORDERED: LANOXIN IV ONE ×2 (16:21→18:30)
[2019-10-22] MEDS: KLONOPIN PO SCH ×2 (20:05→20:06)
--- NOTE | 2019-10-22 20:24 | PROGRESS NOTE ---
DATE: 10/22/2019 SUBJECTIVE: The patient is resting comfortably. He states that his shortness of breath is a little better. However, he remains in A flutter. OBJECTIVE: Vital Signs: Temperature 99.7 degrees, blood pressure 103/78, heart rate 137, respiratory rate 20, O2 saturation 90% on a non-rebreather, intake 1.4 L, output 425. General: This is a elderly male lying in bed in no acute distress. Heart: S1, S2. Normal. Tachycardic, irregular rhythm. Abdomen: Positive bowel sounds. Soft, nontender, nondistended. Extremities: No edema, no cyanosis no calf tenderness. Neurologic: The patient is alert and oriented x3. LABS: White blood cell count 16, hemoglobin 13, hematocrit 39, platelets 83,000. Sodium 132, potassium 4.5, chloride 98, CO2 18, BUN 24, creatinine 0.9 glucose 145. A1c 6.9. AST 141, ALT 64, alkaline phosphatase 525. ASSESSMENT AND PLAN: 1. Acute hypoxemic respiratory failure. Multifactorial. The patient possibly has pneumonia. He also has a lung mass with extensive mediastinal lymphadenopathy. 2. Suspected pneumonia. Continue with broad-spectrum antibiotics, bronchodilator therapy and supplemental oxygen. 3. Atrial flutter. Management as per the gate shear operator. 4. Lung mass with the mediastinal lymphadenopathy and liver metastasis. Dr. Esparza is following. The patient will eventually have a liver biopsy once his pulmonary status improves. 5. Benign prostatic hypertrophy. Aware. We will continue on Flomax. Urology has been consulted. 6. Hypothyroidism. Continue on Synthroid. 7. Transaminitis. This is likely secondary to liver metastasis. The hepatitis profile is negative. We will continue to monitor the liver function studies closely. 8. Deep venous thrombosis prophylaxis. The patient is currently on full dose Lovenox. 9. Newly diagnosed diabetes mellitus type 2. We will start the patient on sliding scale insulin and monitor the blood sugars closely. 10. Constipation. We will start the patient on Colace and MiraLAX. cc: Tiffanie Kumar MD
--- NOTE | 2019-10-22 21:36 | CONSULTATION ---
DATE OF CONSULTATION: 10/22/2019 REQUESTING PHYSICIAN: Tiffanie Kumar MD, with hospitalist service. REASON FOR CONSULTATION: BPH, urinary symptoms. HISTORY OF PRESENT ILLNESS: A 69-year-old male who is known to me secondary to BPH, chronic prostatitis and hypogonadism. He has had PSA elevation since 2009 and has had a prostate biopsy in [place] which was reportedly negative. He has had PSA elevation up to 6.5 in March 2019. He has had 4Kscore checked on 03/25/2018 which was 4% at the time, and hence we deferred biopsy. Most recently he was seen in my clinic on 09/24/2019, at which point he had unremarkable prostate exam with exception to enlarged gland. His PSA per our records most recently was 6.03 on 07/20/2019. He is admitted to the hospital with heart palpitation and shortness of breath, and has been recently diagnosed with liver and lung lesions. He is planning to have a liver biopsy; however, that has been on hold currently secondary to his arrhythmia. He has stable hesitancy, urgency, nocturia x5. He has been on Flomax 0.4 mg b.i.d. for over 2 weeks now. He was also at the time given Bactrim by me and reportedly Levaquin by Dr. Hopper. He states his symptoms are stable. While in the hospital, he had a CT scan of the abdomen and pelvis on 10/22/2019, revealing a prominently enlarged prostate gland. PAST MEDICAL HISTORY: Atrial fibrillation, hyperlipidemia, hypertension, BPH, GERD, anxiety. PAST SURGICAL HISTORY: Cholecystectomy. ALLERGIES: No known drug allergies. SOCIAL HISTORY: Denies tobacco, alcohol or illicit drugs. HOME MEDICATIONS: Reglan, [place], Xarelto, Synthroid, Cardizem, Lipitor, Pepcid, Klonopin, Flomax, Levaquin, vitamin D. REVIEW OF SYSTEMS: Review of 12 systems is negative except for the HPI. PHYSICAL EXAMINATION: T 99.7 degrees, P 137, BP 103/78. In general, no acute distress.HEENT: Normocephalic, atraumatic. Cardiovascular: Tachycardic. Irregular rhythm. Pulmonary: Bilateral breath sounds. Abdomen is soft, nontender to palpation. Mildly protuberant. Genitourinary: Meatus is patent. Penile shaft is without lesions or masses. Scrotal skin is intact. Testes descended bilaterally, atrophic, mildly tender to palpation. There are mild small hydroceles bilaterally. His perineum is without rashes or lesions. Digital rectal examination is deferred, as one was recently performed. Dermatologic: No obvious skin rashes. Neurologic: Alert and oriented x3. Psychiatric: Appropriate mood and affect. PERTINENT LABORATORY DATA: White cell count of 17,000, creatinine is 0.9. PERTINENT IMAGING: CT abdomen and pelvis on 10/22/2019 revealing findings per HPI. ASSESSMENT AND PLAN: A 69-year-old male with benign prostatic hypertrophy with urinary symptoms. He was recently seen on an outpatient basis in clinic, with instructions to increase Flomax to twice-a-day formulation and take Bactrim for presumed prostatitis flare-up. He states his symptoms are stable. His was concerned whether the liver and lung spots could have come from the prostate. I have reviewed the records with her and her , and based on normal digital rectal examination, fairly stable PSA and low 4Kscore done in 2018, we discussed that the liver and lung lesions are unlikely to come from the prostate. I have discussed with Mr. Prado that due to his persistent symptoms despite Flomax b.i.d. treatment, he could benefit from finasteride addition, but that would take at least a month, up to 3 months to work. We also discussed that he would benefit from GreenLight transurethral vaporization of prostate; however, at this time obviously that would not be a priority, given his recent finding of liver and lung lesions. He is content with staying on Flomax twice a day for now while he is undergoing testing to determine the origin of the lesions. If his condition worsens, we could definitely consider doing GreenLight transurethral vaporization, but again that is currently not on his priority list. PLAN: 1. Continue Flomax 0.4 mg b.i.d. 2. No urologic intervention needed at this time. 3. Please call with questions. Thank you for the consultation. cc: Ke Reynoso MD [facility]OSPITALIdris
[2019-10-22] MEDS ORDERED: MYLICON DROPS PO ONE (22:42)
[2019-10-22] MEDS ORDERED: MYLICON DROPS PO PRN (22:43)
[2019-10-23 00:13] LABS: ALLEN TEST YES; BLOOD TYPE ARTERIAL; HCO3-(ACT) 20.8 mmoll (20.0-26.0); METHB 1.6 % (0.0-1.5); O2(CT) 17.4 mL/dL (15.0-23.0); O2HB 90.6 % (95.0-99.0); PCO2(98.6) 29 mmHg (35-45); PO2(98.6) 60 mmHg (60-100); SAMPLE BLOOD; SAO2 93.5 % (95.0-100.0); THB 13.7 g/dL (11.5-17.4); pH(98.6) 7.41 (7.35-7.45)
[2019-10-23 00:15] LABS: MODALITY NRB
[2019-10-23] MEDS: CARDIZEM 100 MG/NS 100 MG/100 ML IVPB IV SCH ×3 (02:07→14:54)
--- NOTE | 2019-10-23 04:23 | PULMONOLOGY PROGRESS NOTE ---
DATE: 10/22/2019 SUBJECTIVE: The patient is awake and alert. He is on a non-rebreather. He remains tachycardic with a heart rate of 140. OBJECTIVE: Vital Signs: The patient has been afebrile for the last 24 hours. Blood pressure 111/81, respiratory rate 28 to 30, oxygen saturation 90%. HEENT: Pupils are equal and reactive. Oropharynx is clear. Neck: Supple. Chest: Reveals shallow crackles bilaterally. Cardiac: S1, S2. Abdomen: Soft with mild increased tympany. Extremities: Without edema. LABORATORIES: D-dimer is greater than 20. Sodium 132, potassium 4.5, chloride 98, bicarbonate 18, BUN 24, creatinine 0.9. White blood count 16.57, hemoglobin 13.3, platelet count 83,000. CT pulmonary angiogram reveals no evidence of pulmonary embolism. He has a mass at the right medial base. He has mediastinal adenopathy with multiple bilateral nodules. He has 3 well-defined masses in the liver. IMPRESSION: 1. Lung mass. 2. Multiple bilateral pulmonary nodules. 3. History of tobacco use. 4. Multiple masses in the liver consistent with metastatic disease. 5. Atrial fibrillation with rapid ventricular response. 6. Increase in D-dimer with negative CT pulmonary angiogram. This is most likely due to underlying malignancy. 7. Overall prognosis is poor. PLAN: 1. Continue attempts to control rate per Cardiology. The patient will need a CT-guided biopsy before his treatment can begin. 2. Anticipate need for Port-A-Cath placement. 3. We will add simethicone at the family's request given his increased tympany/gaseous distention. 4. Prognosis appears poor. cc: Walter Peacock MD
[2019-10-23 04:46] LABS: ALLEN TEST YES; BE -6.2 mmoll (-3.0-3.0); BLOOD TYPE ARTERIAL; HCO3-(ACT) 19.9 mmoll (20.0-26.0); O2(CT) 16.9 mL/dL (15.0-23.0); PCO2(98.6) 30 mmHg (35-45); PO2(98.6) 55 mmHg (60-100); SAMPLE BLOOD; SAO2 91.6 % (95.0-100.0); THB 13.5 g/dL (11.5-17.4); pH(98.6) 7.38 (7.35-7.45)
[2019-10-23 04:48] LABS: O2HB 89.1 % (95.0-99.0)
[2019-10-23 04:49] LABS: MODALITY NRB
[2019-10-23] MEDS: PRILOSEC PO SCH ×2 (05:22→06:00)
[2019-10-23] MEDS: SYNTHROID PO SCH ×3 (05:22→11:40)
[2019-10-23 06:27] LABS: BASO# 0.08 X1000 (0.0-0.2); BASO% 0.5 % (0.0-0.8); EOS# 0.03 X1000 (0.0-0.7); EOS% 0.2 % (0.0-10.0); HEMATOCRIT 41.5 % (42.0-52.0); HEMOGLOBIN 13.3 g/dL (14.0-18.0); IMM GRAN# 0.85 X1000 (0.0-0.04); IMM GRAN% 5.4 % (0.0-0.5); LYMPH# 1.57 X1000 (1.2-3.4); LYMPH% 10.1 % (20.5-51.1); MCH 27.5 PG (27-31); MCV 85.9 FL (81-99); MONO# 0.71 X1000 (0.11-0.59); MONO% 4.5 % (1.7-9.3); MPV 10.7 FL (7.4-10.4); NEUT# 12.38 X1000 (1.4-6.5); NEUT% 79.3 % (42.2-75.2); PLT 66 X1000 (130-400); RBC 4.83 XMIL (4.7-6.1); RDW 14.3 % (11.5-14.5); WBC 15.62 X1000 (4.8-10.8)
[2019-10-23] MEDS: HUMULIN R SUBQ SCH ×3 (06:39→15:51)
[2019-10-23] MEDS ORDERED: LANOXIN IV ONE (06:43)
[2019-10-23 06:56] LABS: AGAP 14; BUN 28 mg/dL (8-22); CHLORIDE 101 mmol/L (98-107); COSMO 281; ESTIMATED GFR > 60; GLUCOSE 155 mg/dL (70-104); POTASSIUM 4.6 mmol/L (3.5-5.1); SODIUM 136 mmol/L (136-145); TCO2 21 mmol/L (25-35)
[2019-10-23 06:59] LABS: ALB/GLOB RATIO 1.1; ALBUMIN 2.9 g/dL (3.5-5.0); DIRECT BILIRUBIN 0.3 mg/dL (0.00-0.20); TOTAL BILIRUBIN 0.79 mg/dL (0.20-1.00); TOTAL PROTEIN 5.6 g/dL (6.3-8.3)
--- NOTE | 2019-10-23 07:06 | Diag Imaging Result Doc PS360 ---
EXAM: CHEST-1 VIEW HISTORY: pneumonia TECHNIQUE: Single view COMPARISON: 10/22/2019 FINDINGS: The lungs are well expanded. The heart is not enlarged. Mild central vascular prominence. The markings in the lower lungs are slightly less prominent. No effusion identified. IMPRESSION: Mild improvement Electronically signed by Steven Smith 10/23/2019 7:04 AM
--- NOTE | 2019-10-23 07:38 | EKG Report ---
Test Performed on : 10/23/2019 07:03:58 AM Test Reason : atrial flutter Blood Pressure : / mmHG Vent. Rate : 125 BPM Atrial Rate : 271 BPM P-R Int : 000 ms QRS Dur : 102 ms QT Int : 336 ms P-R-T Axes : 000 074 061 degrees QTc Int : 484 ms Atrial flutter. with variable AV block. Nonspecific ST abnormality Abnormal ECG When compared with ECG of 22-OCT-2019 07:23, ST elevation has replaced ST depression in Inferior leads ST no longer depressed in Anterior leads T wave inversion less evident in Inferior leads Nonspecific T wave abnormality no longer evident in Anterolateral leads Confirmed by Camden Taylor MD ([id number]) on 10/24/2019 10:50:34 AM
[2019-10-23 07:53] LABS: INR 1.34; PROTIME 16.8 Seconds (11.0-16.0)
--- NOTE | 2019-10-23 07:56 | ECHO REPORT ---
ORDER DATE: 10/22/2019 INTERPRETING PHYSICIAN: Aayush Cheney MD. INDICATIONS: Atrial flutter. M-MODE MEASUREMENTS: Left ventricle end diastole: 4.4 cm. Left ventricle end systole: 3.6 cm. Posterior wall: 1.0 cm. Interventricular septum: 1.0 cm. Left atrium: 3.4 cm. Aortic diameter: 4.6 cm. SUMMARY OF 2-DIMENSIONAL IMAGIN. The study is very difficult. The patient received Optison to optimize the visualization of endocardium. The left ventricular function is normal, ejection fraction is probably in the order of 55% to 60%. The patient is in atrial flutter with a heart rate of 130. 2. The atria are poorly visualized. 3. The right ventricle may be mildly enlarged. 4. The aortic and mitral valves appear to be grossly normal. Doppler pattern of the mitral valve is consistent with atrial flutter. Single-filling wave. 5. There is no pericardial effusion. 6. The pulmonic valve and the tricuspid valve are really not visualized. Clinical correlation is recommended. cc: Aayush Cheney MD
[2019-10-23] MEDS ORDERED: ALBUMIN 25% IV ONE ×3 (08:28→12:34)
[2019-10-23] MEDS ORDERED: POTASSIUM CHLORIDE 10 MEQ in D5 LR 1,000 ML IV SCH (08:30)
[2019-10-23] MEDS ORDERED: SYNTHROID PO SCH (09:00)
[2019-10-23] MEDS ORDERED: VITAMIN D PO SCH (09:00)
[2019-10-23] MEDS ORDERED: ZYLOPRIM PO SCH (09:00)
[2019-10-23 09:02] LABS: BE -5.1 mmoll (-3.0-3.0); BLOOD TYPE ARTERIAL; HCO3-(ACT) 20.9 mmoll (20.0-26.0); METHB 1.7 % (0.0-1.5); O2(CT) 17.6 mL/dL (15.0-23.0); O2HB 95.4 % (95.0-99.0); PCO2(98.6) 31 mmHg (35-45); PO2(98.6) 105 mmHg (60-100); SAMPLE BLOOD; SAO2 98.1 % (95.0-100.0); pH(98.6) 7.39 (7.35-7.45)
[2019-10-23 09:04] LABS: ALLEN TEST YES; MODALITY BI PAP
--- NOTE | 2019-10-23 09:06 | CARDIOLOGY PROGRESS NOTE ---
DATE: 10/23/2019 CHIEF COMPLAINT: Shortness of breath. SUBJECTIVE: Mr. Prado remains quite dyspneic today. They have put him on a BiPAP mask. They checked blood gases on a nonrebreather mask, and his pO2 was 55, pCO2 was 30, pH was 7.38. Interestingly, his chest x-ray today actually looks improved compared to yesterday. The reason for the hypoxemia is really unclear. His 12-lead EKG today shows atrial flutter with rate of 125 beats per minute. Narrow complex. His white cell count is 15,620, hemoglobin 13.3 g, platelet count is 66,000. His PT is 16.8. INR is 1.34. D-dimer is greater than 20 as of yesterday. PTT is 36. Sodium is 136, potassium 4.6, BUN is 28, creatinine 1.0. AST is 107, ALT is 62. Creatine kinase is 597. His C-reactive protein was 234.46 mg/L. The patient is not having any pain. OBJECTIVE: Blood pressure is 92/63, temperature is 98.1, pulse 122, respirations 29. He is awake, alert, oriented. He has a BiPAP mask in place. His stomach is slightly distended, and he is passing gas. Chest shows diminished breath without rales. Heart sounds are irregularly irregular. Extremities showed no edema. Neurologic: Follows commands. Moves all 4 extremities. IMPRESSION: 1. The patient is with paroxysmal atrial flutter. This is persistent. 2. Hypoxemia. The reason for that is unclear. His chest x-ray is clearing up. His echocardiogram yesterday showed normal LV function. There is no evidence of pulmonary embolism. The question of patent foramen ovale has been considered to explain the hypoxemia. 3. 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 4. He may be in a low grade DIC with elevated D-dimer, platelets that are gradually going down. 5. Congestive heart failure, diastolic. RECOMMENDATIONS: Today, I have had multiple phone conversations with Dr. Walter Peacock who in turn also talked to Dr. López Mixon about proceeding with biopsy of the liver. I talked to Dr. Esparza who is the oncologist on the case, Dr. Kumar who is the primary doctor, and I have also talked to Dr. Dixon from Anesthesia, the patient and his . I have proposed to proceed with elective intubation in the cath lab manager, do a transesophageal echocardiogram to achieve two purposes. One, to make sure he does not have a PFO with right to left shunt and also to make sure he does not have a thrombus so we can proceed with cardioversion. Thereafter, we will take him to the radiology suite to proceed with CT guided liver biopsy and hopefully will be able to get the patient extubated thereafter. I explained the risks, benefits and complications of this sequence of procedures. I explained very candidly and clearly to them that this is practically a hail [place] pass when it seems like all other options are lost. I did discuss in detail with all the other physicians, and we have agreed to offer this to the patient, who in turn is agreeing. We will set up the MIGDALIA cardioversion today and hopefully will proceed with biopsy thereafter. cc: Aayush Cheney MD MTDD
[2019-10-23] MEDS: BETAPACE PO SCH (09:13)
[2019-10-23] MEDS: ZOFRAN IV PRN (09:13)
[2019-10-23] MEDS: XOPENEX NEB INH SCH ×2 (09:20→15:34)
[2019-10-23] MEDS: COLACE PO SCH (09:30)
[2019-10-23] MEDS: MIRALAX PO SCH (09:31)
[2019-10-23] MEDS ORDERED: ANESTHESIA PB SET 88 IN 5742 ONE (10:13)
[2019-10-23] MEDS ORDERED: NS 1,000 ML ONE (10:13)
[2019-10-23] MEDS ORDERED: XYLOCAINE-MPF 2% ONE (10:15)
[2019-10-23] MEDS ORDERED: AMIDATE ONE (10:15)
[2019-10-23] MEDS ORDERED: DIPRIVAN 1% ONE (10:15)
[2019-10-23] MEDS ORDERED: QUELICIN (DOSE) ONE (10:15)
[2019-10-23] MEDS ORDERED: ROBINUL ONE (10:15)
--- NOTE | 2019-10-23 10:23 | Extremity Venous Study ---
PROCEDURE NAME: Venous U/S Bilateral Legs - 10/22/2019 STUDY PERFORMED: Bilateral lower extremity venous study. REQUESTING PHYSICIAN: Dr. Peacock. DEPUTY COUNTY ATTORNEY: Amina. INDICATION: 1. Hypercoagulable state. 2. History of atrial fibrillation. EQUIPMENT: [employer] E9 ultrasound system with a 9 L-D transducer. FINDINGS: Images of the bilateral lower extremity venous systems were obtained in both sagittal and transverse planes. Doppler was used to evaluate veins for spontaneity, phasicity, respiratory excursion, and digital augmentation. RESULTS: Normal venous compression. Normal venous flow. No obvious superficial or deep venous thrombosis noted. INTERPRETATION: Essentially normal bilateral lower extremity venous study. cc: MD Walter Coronado MD
[2019-10-23] MEDS ORDERED: VERSED ONE ×2 (10:41→11:02)
[2019-10-23] MEDS ORDERED: ZEMURON ONE (11:02)
--- NOTE | 2019-10-23 11:05 | CARDIAC CATH REPORT ---
DATE: 10/23/2019 PROCEDURE PERFORMED: Direct current cardioversion. PROCEDURE INDICATION: Persistent atrial flutter. HISTORY: A 69-year-old male who presented with atrial flutter. He has lung cancer with metastasis to the liver. Transesophageal echocardiogram was carried out before under controlled conditions with orotracheal intubation. The patient had no thrombus in the heart. Cardioversion was deemed to be safe. The pads had already been positioned in anterior and posterior location before he went on anesthesia. DESCRIPTION: The patient was under the effects of Anesthesia services of Dr. Dixon. He received a single synchronized countershock to the chest cage consisting of 75 yoder per second. He converted from atrial flutter into sinus rhythm. He woke up gradually. No deficits were noted. The patient is being taken to the CT suite for a liver biopsy at this time. The patient is hemodynamically stable. Rhythm is sinus. cc: Aayush Cheney MD
--- NOTE | 2019-10-23 11:08 | Transesophageal Echocardiogram ---
DATE: 10/23/2019 PHYSICIAN: Dr. Cheney REQUESTING PHYSICIAN: CLINICAL INDICATIONS: The patient is with persistent atrial flutter of uncertain duration. MIGDALIA recommended in addition to ruling out thrombus because of severe hypoxemia noted which we suspected could related to patent foramen ovale. PROCEDURE: Transesophageal echocardiography DESCRIPTION: The patient came in to the cardiac laborer wrecking and salvaging. We had already discussed the case with Dr. Barber, and we proceeded with prophylactic orotracheal intubation that was done by him. Once the patient was stable and intubated, we proceeded to intubate the esophagus with a MIGDALIA probe without difficulty. Multiple views of the heart were obtained. SUMMARY OF FINDINGS: 1. The left atrium and appendage were well visualized. There was no evidence of thrombus within the appendage. The flow velocities within the appendages were very high. 2. There is evidence of a patent foramen ovale. Injection of agitated saline 3 times showed shunting of bubbles from right to left of intermittent degrees of severity. 3. Right atrium is unremarkable. 4. Right ventricle appears to be enlarged, and there is flattening of the septum suggesting elevation of the right ventricular pressure. 5. The left ventricle shows normal function. 6. Mitral valve appeared to be unremarkable. 7. The aortic valve has 3 cusps. There was no evidence of any disruption of the aortic valve or the root. 8. The pulmonary trunk proximally appeared to be normal, and the pulmonic valve was unremarkable. 9. There was no pericardial effusion. 10.The descending thoracic aorta showed no obvious lesions. 11.There was no pericardial effusion. SUMMARY: This MIGDALIA shows no evidence of thrombus. There is evidence of a patent foramen ovale with right to left shunt. The patient at this time is deemed to be a safe risk for cardioversion. cc: Aayush Cheney MD [facility]
[2019-10-23] MEDS: DIPRIVAN 1% 1,000 MG/100 ML BOTTLE IV SCH ×2 (11:15→14:34)
[2019-10-23] MEDS ORDERED: MORPHINE IV PRN (11:15)
[2019-10-23] MEDS ORDERED: VENTOLIN HFA ONE (11:25)
[2019-10-23] MEDS: NS 1,000 ML IV SCH ×2 (11:39→12:10)
[2019-10-23] MEDS: LOVENOX SUBQ SCH (11:40)
[2019-10-23] MEDS: FLOMAX PO SCH (11:40)
[2019-10-23] MEDS: ZYVOX 600 MG/D5W 600 MG/300 ML IVPB IV SCH (11:47)
[2019-10-23] MEDS: MAXIPIME 1 GM in NS 50 ML IV SCH (11:47)
[2019-10-23 11:49] LABS: URINE SOURCE CATH
[2019-10-23 11:52] LABS: BILIRUBIN URINE NEGATIVE (NEGATIVE); BLOOD URINE LARGE (NEGATIVE); COLOR YELLOW; GLUCOSE URINE NEGATIVE (NEGATIVE); KETONE URINE NEGATIVE (NEGATIVE); LEUKOCYTES URINE NEGATIVE (NEGATIVE); NITRITE URINE NEGATIVE (NEGATIVE); PROTEIN URINE 100 mg/dL (NEGATIVE); SP GRAVITY URINE 1.038; TURBIDITY URINE HAZY (CLEAR); UROBILINOGEN URINE NORMAL (NORMAL)
[2019-10-23 11:53] LABS: UR EPITHELIAL CELLS <10 /HPF (<10); URINE BACTERIA NEGATIVE /HPF; URINE RBC TNTC /HPF (<10)
[2019-10-23] MEDS ORDERED: NS 250 ML IV ONE (12:00)
[2019-10-23 12:20] LABS: ALLEN TEST YES; BE -7.9 mmoll (-3.0-3.0); BLOOD TYPE ARTERIAL; HCO3-(ACT) 18.5 mmoll (20.0-26.0); METHB 1.3 % (0.0-1.5); O2(CT) 14.6 mL/dL (15.0-23.0); PCO2(98.6) 45 mmHg (35-45); PO2(98.6) 51 mmHg (60-100); SAMPLE BLOOD; SAO2 86.9 % (95.0-100.0); SRATE 16 BPM; THB 12.3 g/dL (11.5-17.4); TVOL 700 mL; pH(98.6) 7.24 (7.35-7.45)
[2019-10-23 12:22] LABS: MODALITY VENTILATOR; O2HB 84.3 % (95.0-99.0)
[2019-10-23] MEDS ORDERED: XOPENEX NEB INH PRN (13:12)
[2019-10-23] MEDS ORDERED: NS NEB INH SCH (13:15)
--- NOTE | 2019-10-23 13:29 | HEMO/ONC PROGRESS NOTE ---
DATE: 10/23/2019 SUBJECTIVE: Mr. Prado appears calm in bed this morning. He does have BiPAP on still. He denies any significant complaints this morning. He is aware of the plan to proceed with cardioversion, as well as liver biopsy today. OBJECTIVE: Vital Signs: Temperature 97.4 degrees, pulse rate 94, respiratory rate 18, blood pressure 114/83, O2 saturation 86% on mechanical ventilation at 100% oxygen flow. General exam: At the time of my exam, the patient was comfortable on BiPAP. Dr. Cheney felt it would be best not to intubate the patient prior to this procedure. Cardiovascular: Tachycardic rate and rhythm, irregularly irregular. Respiratory: Lung sounds mostly clear. Abdomen: Soft, nontender, nondistended. Positive bowel sounds. Extremities: No lower extremity edema noted. Neurological: Alert and oriented x3. No focal motor deficits. LABORATORY: WBCs 15.62, hemoglobin 13.3, hematocrit 41.5, platelet count 66,000. ANC 12.38, INR 16.8, ESR 35. D-dimer greater than 20. AST 107, ALT 62, alkaline phosphatase 597, CRP 234. CEA 3.9. ASSESSMENT AND PLAN: 1. Atrial flutter. The patient was taken to the catheterization laboratory today by Dr. Cheney. He was intubated. Transesophageal echocardiogram showed the patient had no thrombus in the heart. Cardioversion was performed. The patient converted with 1 shock from atrial flutter into sinus rhythm. The patient had no complications. He was then transferred to the CT Suite to proceed with his liver biopsy. 2. Bronchopneumonia. Continue the patient on antibiotics per medical management. We will continue to follow. 3. Right lower lobe lung mass with diffuse metastasis. We are awaiting pathology from his liver biopsy. We will continue to monitor. 4. Transaminitis. This is most likely from his liver metastasis. Hepatitis profile is negative. We will continue to monitor. 5. Benign prostatic hyperplasia and elevated prostate specific antigen. Urology has consulted. 6. Deep vein thrombosis prophylaxis. Due to the patient's malignancy and immobilization at this time, he is at high risk for deep vein thrombosis. Please be sure he has on pneumatic devices or sequential compression devices and, when safe to do so from his biopsy, resume his Lovenox. Dictated by LUCIO Hemphill for Francisco Esparza MD Patient seen and examined. Discussed with all specialist. Cardioversion performed. MIGDALIA shows PFO. This is thought to be the reason for his profound hypoxia. There is plan for liver biopsy today. Pathologist aware. Will follow closely. Discussed with patient's who is at bedside. Francisco Esparza MD cc: Francisco Esparza MD [facility]
--- NOTE | 2019-10-23 14:02 | Diag Imaging Result Doc PS360 ---
EXAM: CT GUIDED BX LIVER 10/23/2019 HISTORY: liver masses TECHNIQUE: CT-guided biopsy of the right hepatic lobe COMMENT: The consent was previously obtained. The patient was ventilated by respiratory therapy during the examination. He had been previously sedated. Following sterile preparation the skin laterally and administration of 1% lidocaine to the skin and deeper soft tissues of the right side over the previously demonstrated lucent lesion in the liver, an 18-gauge coaxial Temno core biopsy needle was employed to obtain five cores from the lesion. Three of these were sent to the laboratory for immediate analysis. Two were sent in formalin subsequently. There is no apparent acute complication. IMPRESSION: Successful CT-guided biopsy of the liver. Electronically signed by López Mixon 10/23/2019 2:00 PM
[2019-10-23] MEDS ORDERED: NS 250 ML ONE (14:09)
[2019-10-23] MEDS ORDERED: NEO-SYNEPHRINE 50 MG in NS 250 ML IV SCH (14:30)
[2019-10-23] MEDS ORDERED: ATIVAN IV PRN (15:07)
[2019-10-23] MEDS ORDERED: ATIVAN 20 MG in NS 190 ML IV SCH (15:15)
--- NOTE | 2019-10-23 15:53 | Diag Imaging Result Doc PS360 ---
EXAM: CHEST-1 VIEW 10/23/2019 HISTORY: respiratory failure TECHNIQUE: AP portable upright at 1534 COMMENT: There is an endotracheal tube with its tip approximately 4 cm above the basil and a PICC line on the right with its tip in the superior vena cava. The inspiration is slightly less optimal than on 10/23/2019 at 0551. There may be slightly worsened left basilar atelectasis. IMPRESSION: Left lower lobe atelectasis. Electronically signed by López Mixon 10/23/2019 3:51 PM
[2019-10-23] MEDS ORDERED: DIPRIVAN 1% 1,000 MG/100 ML BOTTLE IV SCH (16:00)
[2019-10-23 16:16] LABS: ALLEN TEST YES; BE -7.7 mmoll (-3.0-3.0); BLOOD TYPE ARTERIAL; HCO3-(ACT) 18.5 mmoll (20.0-26.0); METHB 1.1 % (0.0-1.5); O2(CT) 11.5 mL/dL (15.0-23.0); PCO2(98.6) 38 mmHg (35-45); SAMPLE BLOOD; SAO2 79.1 % (95.0-100.0); SRATE 18 BPM; THB 10.6 g/dL (11.5-17.4); TVOL 700 mL; pH(98.6) 7.29 (7.35-7.45)
[2019-10-23 16:17] LABS: MODALITY VENTILATOR
[2019-10-23 16:22] LABS: O2HB 77.3 % (95.0-99.0); PO2(98.6) 43 mmHg (60-100)
[2019-10-23] MEDS ORDERED: SOLU-CORTEF IV SCH (16:30)
[2019-10-23] MEDS ORDERED: MUCOMYST 20% INH ONE (16:36)
[2019-10-23] MEDS ORDERED: LEVOPHED 8 MG in D5 1/2 NS 250 ML IV SCH (17:15)
[2019-10-23] MEDS ORDERED: NS 1,000 ML IV SCH (17:15)
[2019-10-23] MEDS ORDERED: NIMBEX 80 MG in NS 160 ML IV SCH (17:30)
[2019-10-23 17:34] LABS: ALLEN TEST YES; BE -8.6 mmoll (-3.0-3.0); BLOOD TYPE ARTERIAL; HCO3-(ACT) 18.2 mmoll (20.0-26.0); METHB 1.3 % (0.0-1.5); O2(CT) 15.3 mL/dL (15.0-23.0); PCO2(98.6) 32 mmHg (35-45); PO2(98.6) 98 mmHg (60-100); SAMPLE BLOOD; SAO2 98.4 % (95.0-100.0); SRATE 26 BPM; THB 11.2 g/dL (11.5-17.4); pH(98.6) 7.32 (7.35-7.45)
[2019-10-23 17:35] LABS: MODALITY VENTILATOR
[2019-10-23 19:20] VITALS: BP 118/80
[2019-10-23] MEDS ORDERED: MUCOMYST 20% INH SCH (19:30)
--- NOTE | 2019-10-23 23:39 | PROVIDER PROGRESS NOTE ---
Progress Note Dr. Patel Progress Note/Pulmonary and or critical care Subjective: During my first encounter, patient is lying in bed on a BiPAP mask. Staff at the bedside is preparing him for cardiac catheterization and following CT-guided biopsy. His respiratory statue appears declining overnight. He stays tachycardia. Patients at the bedside. Later at 11am, Patient was transferred to ICU 1 with intubation. He apparently was intubated in the greens laborer for a transesophageal echocardiogram. Patient was persistently desaturated since procedures. Patients and son are at the bedside this time. Objective: Vital Signs: T 98.1, BP 92/63, AZ 122, RR 29, and SaO2 97% on BiPAP. Physical Examination: General: Lying in bed with no acute distress noted. On a BiPAP mask. at the bedside. HEENT: Normocephalic. Trachea midline. PERRL. Chest: Even and unlabored. No increased work of breathing. Symmetrical excursion. Inspiratory crackles bilaterally with good air entry. CVS: S1 and S2 appreciated. Abdomen: Bowel sounds present. Soft. Nontender. Nondistended. Extremities: No pedal edema. No cyanosis. No clubbing. Neuro: A/O x3. Speech fluent. Follow commands. Weakness present. Labs and Radiology: Laboratory Results 10/23/19 10/23/19 10/23/19 00:03 04:35 05:40 WBC 15.62 H RBC 4.83 Hgb 13.3 L Hct 41.5 L MCV 85.9 MCH 27.5 MCHC 32.0 L RDW Std Deviation 14.3 Plt Count 66 L MPV 10.7 H Immature Gran % (Auto) 5.4 H Neut % (Auto) 79.3 H Lymph % (Auto) 10.1 L Butts % (Auto) 4.5 Eos % (Auto) 0.2 Baso % (Auto) 0.5 Immature Gran # (Auto) 0.85 H Neut # (Auto) 12.38 H Lymph # (Auto) 1.57 Butts # (Auto) 0.71 H Eos # (Auto) 0.03 Baso # (Auto) 0.08 PT INR PTT (Actin FS) Specimen Type ARTERIAL ARTERIAL Sample Site R RADIAL R RADIAL pH 7.41 7.38 pCO2 29 L 30 L pO2 60 55 L HCO3 20.8 19.9 L Base Excess -5.0 L -6.2 L Oxyhemoglobin 90.6 L 89.1 L* ABG O2 Sat (Calculated) 17.4 16.9 ABG O2 Saturation 93.5 L 91.6 L ABG Carboxyhemoglobin 1.60 1.80 ABG Methemoglobin 1.6 H 1.0 Ced Test YES YES A-a O2 Difference 617.0 621.0 Total Hemoglobin 13.7 13.5 Lactate 2.00 2.10 Liter Flow 15.0 15.0 Blood Gas Modality NRB NRB Vent Mode Spontaneous Rate FiO2 % 100.0 100.0 Tidal Volume PEEP Inspiratory BiPAP Expiratory BiPAP Sodium Potassium Chloride Carbon Dioxide Anion Gap BUN Creatinine Estimated GFR/1.73 m2 BUN/Creatinine Ratio Glucose POC Glucose Calculated Osmolality Uric Acid Calcium Total Bilirubin Direct Bilirubin AST ALT Alkaline Phosphatase Total Protein Albumin Globulin Albumin/Globulin Ratio Urine Source Urine Color Urine Turbidity Urine pH Ur Specific [place] Urine Protein Ur Glucose (Stick) Ur Ketones (Stick) Urine Blood Urine Nitrite Urine Bilirubin Urobilinogen Dipstick Urine Leukocytes Urine WBC (Auto) Urine RBC (Auto) U Epithel Cells (Auto) Urine Bacteria (Auto) 10/23/19 10/23/19 10/23/19 05:40 05:40 05:41 WBC RBC Hgb Hct MCV MCH MCHC RDW Std Deviation Plt Count MPV Immature Gran % (Auto) Neut % (Auto) Lymph % (Auto) Butts % (Auto) Eos % (Auto) Baso % (Auto) Immature Gran # (Auto) Neut # (Auto) Lymph # (Auto) Butts # (Auto) Eos # (Auto) Baso # (Auto) PT INR PTT (Actin FS) Specimen Type Sample Site pH pCO2 pO2 HCO3 Base Excess Oxyhemoglobin ABG O2 Sat (Calculated) ABG O2 Saturation ABG Carboxyhemoglobin ABG Methemoglobin Ced Test A-a O2 Difference Total Hemoglobin Lactate Liter Flow Blood Gas Modality Vent Mode Spontaneous Rate FiO2 % Tidal Volume PEEP Inspiratory BiPAP Expiratory BiPAP Sodium 136 Potassium 4.6 Chloride 101 Carbon Dioxide 21 L Anion Gap 14 BUN 28 H Creatinine 1.0 Estimated GFR/1.73 m2 > 60 BUN/Creatinine Ratio 28 Glucose 155 H POC Glucose Calculated Osmolality 281 Uric Acid 6.4 Calcium 9.0 Total Bilirubin 0.79 Direct Bilirubin 0.30 H AST 107 H ALT 62 H Alkaline Phosphatase 597 H Total Protein 5.6 L Albumin 2.9 L Globulin 2.7 Albumin/Globulin Ratio 1.1 Urine Source Urine Color Urine Turbidity Urine pH Ur Specific [place] Urine Protein Ur Glucose (Stick) Ur Ketones (Stick) Urine Blood Urine Nitrite Urine Bilirubin Urobilinogen Dipstick Urine Leukocytes Urine WBC (Auto) Urine RBC (Auto) U Epithel Cells (Auto) Urine Bacteria (Auto) 10/23/19 10/23/19 10/23/19 06:20 07:40 07:40 WBC RBC Hgb Hct MCV MCH MCHC RDW Std Deviation Plt Count MPV Immature Gran % (Auto) Neut % (Auto) Lymph % (Auto) Butts % (Auto) Eos % (Auto) Baso % (Auto) Immature Gran # (Auto) Neut # (Auto) Lymph # (Auto) Butts # (Auto) Eos # (Auto) Baso # (Auto) PT 16.8 H INR 1.34 PTT (Actin FS) 36.0 Specimen Type Sample Site pH pCO2 pO2 HCO3 Base Excess Oxyhemoglobin ABG O2 Sat (Calculated) ABG O2 Saturation ABG Carboxyhemoglobin ABG Methemoglobin Ced Test A-a O2 Difference Total Hemoglobin Lactate Liter Flow Blood Gas Modality Vent Mode Spontaneous Rate FiO2 % Tidal Volume PEEP Inspiratory BiPAP Expiratory BiPAP Sodium Potassium Chloride Carbon Dioxide Anion Gap BUN Creatinine Estimated GFR/1.73 m2 BUN/Creatinine Ratio Glucose POC Glucose 125 H Calculated Osmolality Uric Acid Calcium Total Bilirubin Direct Bilirubin AST ALT Alkaline Phosphatase Total Protein Albumin Globulin Albumin/Globulin Ratio Urine Source Urine Color Urine Turbidity Urine pH Ur Specific [place] Urine Protein Ur Glucose (Stick) Ur Ketones (Stick) Urine Blood Urine Nitrite Urine Bilirubin Urobilinogen Dipstick Urine Leukocytes Urine WBC (Auto) Urine RBC (Auto) U Epithel Cells (Auto) Urine Bacteria (Auto) 10/23/19 10/23/19 10/23/19 08:51 11:37 11:48 WBC RBC Hgb Hct MCV MCH MCHC RDW Std Deviation Plt Count MPV Immature Gran % (Auto) Neut % (Auto) Lymph % (Auto) Butts % (Auto) Eos % (Auto) Baso % (Auto) Immature Gran # (Auto) Neut # (Auto) Lymph # (Auto) Butts # (Auto) Eos # (Auto) Baso # (Auto) PT INR PTT (Actin FS) Specimen Type ARTERIAL Sample Site R BRACHIAL pH 7.39 pCO2 31 L pO2 105 H HCO3 20.9 Base Excess -5.1 L Oxyhemoglobin 95.4 ABG O2 Sat (Calculated) 17.6 ABG O2 Saturation 98.1 ABG Carboxyhemoglobin 1.10 ABG Methemoglobin 1.7 H Ced Test YES A-a O2 Difference 569.0 Total Hemoglobin 13.0 Lactate 1.80 Liter Flow Blood Gas Modality BI PAP Vent Mode Spontaneous Rate FiO2 % 100.0 Tidal Volume PEEP Inspiratory BiPAP 12.0 Expiratory BiPAP 6.0 Sodium Potassium Chloride Carbon Dioxide Anion Gap BUN Creatinine Estimated GFR/1.73 m2 BUN/Creatinine Ratio Glucose POC Glucose 155 H Calculated Osmolality Uric Acid Calcium Total Bilirubin Direct Bilirubin AST ALT Alkaline Phosphatase Total Protein Albumin Globulin Albumin/Globulin Ratio Urine Source CATH Urine Color YELLOW Urine Turbidity HAZY Urine pH 6.0 Ur Specific [place] 1.038 Urine Protein 100 A Ur Glucose (Stick) NEGATIVE Ur Ketones (Stick) NEGATIVE Urine Blood LARGE A Urine Nitrite NEGATIVE Urine Bilirubin NEGATIVE Urobilinogen Dipstick NORMAL Urine Leukocytes NEGATIVE Urine WBC (Auto) 10-20 A Urine RBC (Auto) TNTC A U Epithel Cells (Auto) <10 Urine Bacteria (Auto) NEGATIVE 10/23/19 10/23/19 10/23/19 12:09 15:48 16:06 WBC RBC Hgb Hct MCV MCH MCHC RDW Std Deviation Plt Count MPV Immature Gran % (Auto) Neut % (Auto) Lymph % (Auto) Butts % (Auto) Eos % (Auto) Baso % (Auto) Immature Gran # (Auto) Neut # (Auto) Lymph # (Auto) Butts # (Auto) Eos # (Auto) Baso # (Auto) PT INR PTT (Actin FS) Specimen Type ARTERIAL ARTERIAL Sample Site R RADIAL R RADIAL pH 7.24 L 7.29 L pCO2 45 38 pO2 51 L 43 L* HCO3 18.5 L 18.5 L Base Excess -7.9 L -7.7 L Oxyhemoglobin 84.3 L* 77.3 L* ABG O2 Sat (Calculated) 14.6 L 11.5 L ABG O2 Saturation 86.9 L 79.1 L ABG Carboxyhemoglobin 1.70 1.20 ABG Methemoglobin 1.3 1.1 Ced Test YES YES A-a O2 Difference 606.0 623.0 Total Hemoglobin 12.3 10.6 L Lactate 1.90 2.40 H Liter Flow Blood Gas Modality VENTILATOR VENTILATOR Vent Mode A/C A/C Spontaneous Rate 16 18 FiO2 % 100.0 100.0 Tidal Volume 700 700 PEEP 5.0 5.0 Inspiratory BiPAP Expiratory BiPAP Sodium Potassium Chloride Carbon Dioxide Anion Gap BUN Creatinine Estimated GFR/1.73 m2 BUN/Creatinine Ratio Glucose POC Glucose 192 H Calculated Osmolality Uric Acid Calcium Total Bilirubin Direct Bilirubin AST ALT Alkaline Phosphatase Total Protein Albumin Globulin Albumin/Globulin Ratio Urine Source Urine Color Urine Turbidity Urine pH Ur Specific [place] Urine Protein Ur Glucose (Stick) Ur Ketones (Stick) Urine Blood Urine Nitrite Urine Bilirubin Urobilinogen Dipstick Urine Leukocytes Urine WBC (Auto) Urine RBC (Auto) U Epithel Cells (Auto) Urine Bacteria (Auto) 10/23/19 17:30 WBC RBC Hgb Hct MCV MCH MCHC RDW Std Deviation Plt Count MPV Immature Gran % (Auto) Neut % (Auto) Lymph % (Auto) Butts % (Auto) Eos % (Auto) Baso % (Auto) Immature Gran # (Auto) Neut # (Auto) Lymph # (Auto) Butts # (Auto) Eos # (Auto) Baso # (Auto) PT INR PTT (Actin FS) Specimen Type ARTERIAL Sample Site R RADIAL pH 7.32 L pCO2 32 L pO2 98 HCO3 18.2 L Base Excess -8.6 L Oxyhemoglobin 96.0 ABG O2 Sat (Calculated) 15.3 ABG O2 Saturation 98.4 ABG Carboxyhemoglobin 1.10 ABG Methemoglobin 1.3 Ced Test YES A-a O2 Difference 575.0 Total Hemoglobin 11.2 L Lactate 2.60 H Liter Flow Blood Gas Modality VENTILATOR Vent Mode A/C PC Spontaneous Rate 26 FiO2 % 100.0 Tidal Volume PEEP 5.0 Inspiratory BiPAP Expiratory BiPAP Sodium Potassium Chloride Carbon Dioxide Anion Gap BUN Creatinine Estimated GFR/1.73 m2 BUN/Creatinine Ratio Glucose POC Glucose Calculated Osmolality Uric Acid Calcium Total Bilirubin Direct Bilirubin AST ALT Alkaline Phosphatase Total Protein Albumin Globulin Albumin/Globulin Ratio Urine Source Urine Color Urine Turbidity Urine pH Ur Specific [place] Urine Protein Ur Glucose (Stick) Ur Ketones (Stick) Urine Blood Urine Nitrite Urine Bilirubin Urobilinogen Dipstick Urine Leukocytes Urine WBC (Auto) Urine RBC (Auto) U Epithel Cells (Auto) Urine Bacteria (Auto) Assessment: Hypoxemic respiratory failure. Worsening. Patient was electively intubated in the research lab assistant for MIGDALIA and liver biopsy. Lung mass with multiple masses in the liver consistent with metastatic disease. s/p liver biopsy today. Multiple bilateral pulmonary nodules. Atrial fibrillation with rapid ventricular response. Cardioversion scheduled today, but did not performed per Dr. Walker as a PFO with right to left shunt identified on MIGDALIA. Congestive heart failure, diastolic. Overall prognosis is poor. Plan: We checked ventilator settings and titrated to patients needs per clinical protocol. Ventilator settings eventually was switched from PRVC mode to PS mode with reversed I/E ratio of 2:1, PC 25 and PEEP 10. At the time of my leaving, the PEEP was titrated to 5 and patient tolerated well. We will keep closely monitoring patients clinical response. We titrated Sedative to the patients needs per clinical protocols. Initially we started Diprivan drip. Patients BP kept declining and phenylephrine was started. We switched Diprivan to Ativan drip. Later we also added Nimbex protocol. We will keep closely monitoring patients clinical response. We titrated phenylephrine drip to the patients needs per clinical protocols. We will keep monitoring patients clinical response closely. Solu-cortef started at stress doses. Continue antibiotics including Cefepime and Linezoli. Continue GI and DVT prophylaxis. Dr. Foster is planning to transfer patient to other facility secondary to PFO with right to left shunt. Total evaluation time in minutes: 35.
--- NOTE | 2019-10-24 02:42 | DISCHARGE SUMMARY ---
ADMISSION DATE: 10/21/2019 DISCHARGE DATE: 10/23/2019 FINAL DISCHARGE DIAGNOSES: 1. Acute hypoxemic respiratory failure. 2. Community-acquired pneumonia. 3. Atrial flutter status post MIGDALIA with cardioversion. 4. Patent foramen ovale with a [id number] shunt. 5. Right lung mass with liver metastasis. 6. Transaminitis secondary to liver metastasis. 7. Status post CT-guided liver biopsy. 8. Newly diagnosed diabetes mellitus type 2. 9. Severe protein calorie malnutrition. 10. Hypothyroidism. 11. Benign prostatic hypertrophy. 12. Constipation. CONSULTATIONS: 1. Cardiology consultation with Dr. Cheney. 2. Pulmonary consultation with Dr. Peacock. 3. Oncology consultation with Dr. Esparza. IMAGIN. Portable chest x-ray performed on 11/10/2019, which revealed mild bronchopneumonia. 2. Bilateral venous ultrasound of the legs which revealed no new evidence of superficial or deep vein thrombosis. 3. Pulmonary arteriogram performed on 10/22/2019, which revealed no evidence of pulmonary embolism, a stable right lung base mass, mediastinal lymphadenopathy, and multiple lung nodules. 4. CT of the abdomen and pelvis which revealed moderate distention of the cecum and transverse colon. Enlarged prostate. 5. Portable chest x-ray performed on 10/23/2019 which revealed mild improvement in the infiltrative process. PROCEDURES: 1. MIGDALIA performed on 11/12/2019, which revealed a patent foramen ovale with shunting of right-to- left of intermittent degrees. No pericardial effusion. No thrombus. 2. Direct current cardioversion performed on 10/23/2019. 3. Endotracheal intubation on 10/23/2019. 4. CT-guided liver biopsy performed on 10/23/2019. HOSPITAL COURSE: Mr. Prado is a 69-year-old male with a history of recently diagnosed lung mass with liver metastasis, hypothyroidism, atrial fibrillation, anxiety disorder, and BPH who presented to the ER with severe shortness of breath. On admission, a chest x- ray was done that revealed pneumonia. Also at the time, the patient was noted to be in atrial flutter with a heart rate ranging from 120 to about 140. In light of these findings, the patient was admitted to the hospitalist service to [facility]. The patient was started on a Cardizem drip. Blood cultures were obtained and the patient was started on broad-spectrum antibiotics as well as IV fluid. Pulmonary medicine as well as Cardiology were consulted for assistance with management. The patient was started on sotalol and the Cardizem drip was also continued. However, the patient's heart rate remained in the 130s. Digoxin was also given with no change in the heart rate. The patient's oncologist, Dr. Esparza, was also consulted for further recommendations. After discussion with the fisher oyster and oncologist, it was decided to go forward with a MIGDALIA with cardioversion and liver biopsy afterwards. The patient was electively intubated and underwent a MIGDALIA with cardioversion on 10/23/2019. The patient was noted to be in normal sinus rhythm following the procedure. During the MIGDALIA the patient was noted to have a right to left shunting PFO. It was thought that this was one of the primary causes of the patient's persistent hypoxemia. The patient was then taken to the radiology suite and a liver biopsy was performed. The patient was then transferred still on the ventilator to the ICU. The patient was noted to be severely hypoxemic during the afternoon and the fisher oyster was notified and adjustments were made on the patient's ventilator and his hypoxemia improved. The patient's critical condition was discussed with the patient's family and they were offered the option of being transferred to a higher level of care, which they stated that they would prefer. I made a call to [facility], however they were on diversion. I also called [place]. Then I also called [facility]. The case was discussed with the cardiovascular surgeon at [facility], Dr. Abbe Lassiter, who stated that he would accept the patient for possible percutaneous PFO closure given the patient's persistent episodes of hypoxemia. The patient was ultimately transferred to [facility] via a critical care jet. cc: MD Tiffanie Barr MD MTDD
== END 2019-10-23 20:00 | disposition short-term general hospital (02) | DRG 871 ==
LOC: ED 12:03 → 2N 15:20 → ICU 10-23 11:33
PROVIDERS: ATTEND Internal Medicine